=== PATIENT | male | born 1945 | race Caucasian/White ===

== ENCOUNTER 2017-03-17 08:34 | Inpatient (IN) | payer MEDICARE, OTHER ==
[~2017-03-17] VITALS: Ht 185.4 cm; Wt 86.2 kg
[2017-03-17] MEDS ORDERED: ALFUZOSIN HCL 10 MG (08:50)
[2017-03-17] MEDS ORDERED: LOSARTAN POTASSIUM 50 MG TAB (08:50)
--- NOTE | 2017-03-17 08:54 | NUR ---
PT IS IN ROOM #1A. DR GOMES EVALUATED THE PT.
[2017-03-17 09:16] LABS: BASOPHILS % (AUTO) 0.7 % (0.0-2.0); EOSINOPHILS # (AUTO) 0.8 K/uL (0.0-0.7); EOSINOPHILS % (AUTO) 12.3 % (0.0-7.0); HEMATOCRIT 44.2 % (36.7-47.1); HEMOGLOBIN 15.3 g/dL (12.5-16.3); LYMPHOCYTES # (AUTO) 1.1 K/uL (20.0-40.0); LYMPHOCYTES % (AUTO) 17.7 % (20.5-51.5); MEAN CORPUSCULAR HEMOGLOBIN 34.1 uug (23.8-33.4); MEAN CORPUSCULAR HGB CONC 35 g/dL (32.5-36.3); MEAN CORPUSCULAR VOLUME 98.1 fL (73.0-96.2); MONOCYTES # (AUTO) 0.5 K/uL (2.0-10.0); MONOCYTES % (AUTO) 7.4 % (0.0-11.0); NEUTROPHILS # (AUTO) 3.9 K/uL (1.8-8.9); NEUTROPHILS % (AUTO) 61.9 % (38.5-71.5); PLATELET COUNT (AUTO) 109 K/uL (152-348); WHITE BLOOD COUNT (AUTO) 6.3 K/uL (3.6-10.2)
[2017-03-17 09:17] LABS: CARBON DIOXIDE 28 mmol/L (21-32); CHLORIDE 112 mmol/L (98-107); CREATININE 1.2 mg/dL (0.6-1.3); GLUCOSE 103 mg/dL (74-106); POTASSIUM 4.9 mmol/L (3.5-5.1); UREA NITROGEN, BLOOD 25 mg/dL (7-18)
[2017-03-17 09:22] LABS: ALANINE AMINOTRANSFERASE 26 U/L (16-63); ALKALINE PHOSPHATASE 63 U/L (50-136); ASPARTATE AMINOTRANSFERASE 16 U/L (15-37); BILIRUBIN,DIRECT 0.3 mg/dL (0.0-0.2); BILIRUBIN,TOTAL 1.4 mg/dL (0.2-1.0); TOTAL PROTEIN, SERUM 5.8 g/dL (6.4-8.2)
[2017-03-17] MEDS ORDERED: ONDANSETRON 4 MG/2 ML VIAL IV PRN (10:00)
[2017-03-17] MEDS ORDERED: ACETAMINOPHEN 325 MG TABLET PO PRN (10:00)
--- NOTE | 2017-03-17 10:38 | NUR ---
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 pt was transfered to room #230.
--- NOTE | 2017-03-17 11:30 | NUR ---
Received report from ER nurse, patient received on the unit and vitals were stable. Tele monitor applied to reveal tomy rhythm at 57bpm. No evidence of distress noted at this time, will continue to monitor. Paperwork for advanced directive given to patient and .
[2017-03-17 14:56] LABS: THYROID STIMULATING HORMONE 2.851 mIU/mL (0.358-3.740)
[2017-03-17 15:28] VITALS: BP 138/80
--- NOTE | 2017-03-17 19:59 | NUR ---
PATIENT ALERT AND AWAKE, NO C/O PAIN OR ANY DISCOMFORT . SINUS NICOL WITH HR 47 ON THE MONITOR. FAMILY AT THE BED SIDE. WAITING TO DISCUSS WITH THE DOCTOR ABOUT THE DISCHARGE. WILL CONTINUE TO MONITOR.
[2017-03-17 20:00] VITALS: BP 127/61
[2017-03-17] MEDS ORDERED: INFLUENZA VACCINE 2017-2018 0.5 ML DISP.SYRIN IM ONE (21:00)
[2017-03-17] MEDS ORDERED: PNEUMOCOCCAL 23-VAL P-SAC VAC 0.5 ML VIAL IM ONE (21:00)
[2017-03-17] MEDS ORDERED: AMOXICILLIN-CLAVUL 875-125MG TABLET PO SCH (22:00)
[2017-03-17] MEDS ORDERED: AMOXICILLIN-CLAVUL 875-125MG TABLET ONE (22:22)
[2017-03-18 00:35] VITALS: BP 98/56
[2017-03-18 04:24] VITALS: BP 107/60
--- NOTE | 2017-03-18 06:57 | NUR ---
PATIENT CONTINUING ON OBSERVATION. CARDIAC MONITORING SHOWS SINUS NICOL. PATIENT ASYMPTOMATIC. WILL CONTINUE TO MONITOR
[2017-03-18 07:00] LABS: BASOPHILS % (AUTO) 0.5 % (0.0-2.0); EOSINOPHILS # (AUTO) 0.8 K/uL (0.0-0.7); EOSINOPHILS % (AUTO) 12.6 % (0.0-7.0); HEMOGLOBIN 15.5 g/dL (12.5-16.3); LYMPHOCYTES # (AUTO) 1.1 K/uL (20.0-40.0); LYMPHOCYTES % (AUTO) 17.4 % (20.5-51.5); MEAN CORPUSCULAR HGB CONC 35 g/dL (32.5-36.3); MEAN CORPUSCULAR VOLUME 98.6 fL (73.0-96.2); MONOCYTES # (AUTO) 0.5 K/uL (2.0-10.0); MONOCYTES % (AUTO) 7.7 % (0.0-11.0); NEUTROPHILS % (AUTO) 61.8 % (38.5-71.5); PLATELET COUNT (AUTO) 103 K/uL (152-348); RED BLOOD CELL COUNT(AUTO) 4.56 MIL/uL (4.06-5.63); WHITE BLOOD COUNT (AUTO) 6.5 K/uL (3.6-10.2)
[2017-03-18 08:12] LABS: ALANINE AMINOTRANSFERASE 24 U/L (16-63); ALKALINE PHOSPHATASE 59 U/L (50-136); ASPARTATE AMINOTRANSFERASE 15 U/L (15-37); BILIRUBIN,TOTAL 1.8 mg/dL (0.2-1.0); CARBON DIOXIDE 22 mmol/L (21-32); CHLORIDE 109 mmol/L (98-107); CHOLESTEROL 96 mg/dL (<200); GLUCOSE 93 mg/dL (74-106); HDL CHOLESTEROL 34 mg/dL (40-60); MAGNESIUM 1.8 mg/dL (1.8-2.4); PHOSPHOROUS 2.9 mg/dL (2.5-4.9); TOTAL PROTEIN, SERUM 5.6 g/dL (6.4-8.2); TRIGLYCERIDES 59 MG/DL (30-150); UREA NITROGEN, BLOOD 21 mg/dL (7-18)
[2017-03-18] MEDS ORDERED: FAMOTIDINE 20 MG TABLET PO SCH (09:00)
[2017-03-18 10:30] VITALS: BP 147/80
[2017-03-18 10:57] LABS: THYROID STIMULATING HORMONE 2.924 mIU/mL (0.358-3.740)
== END 2017-03-18 11:15 | disposition home or self-care (01) | DRG 309 ==
LOC: ER 08:34 → TELE 10:57
PROVIDERS: ADMIT Internal Medicine; ATTEND Internal Medicine
DX: R00.1 Bradycardia, unspecified (principal); E44.0 Moderate protein-calorie malnutrition; D69.6 Thrombocytopenia, unspecified; E83.51 Hypocalcemia; N40.0 Benign prostatic hyperplasia without lower urinary tract symptoms; T41.45XA Adverse effect of unspecified anesthetic, initial encounter; T88.59XA Other complications of anesthesia, initial encounter; Y92.530 Ambulatory surgery center as the place of occurrence of the external cause; Z87.442 Personal history of urinary calculi; E78.5 Hyperlipidemia, unspecified; Z68.25 Body mass index [BMI] 25.0-25.9, adult; I10 Essential (primary) hypertension
CPT/HCPCS: 36415; 70030-TC; 83735; 84100; 84153; 84443; 85025; 85730; 93005; 93307; A4663; J7030